=== PATIENT | male | born 1975 | race Caucasian/White ===

== ENCOUNTER 2019-06-26 15:50 | Emergency (ER) | payer SELFPAY | END 2019-06-26 16:27 | disposition home or self-care (01) | LOC: ERS 15:50 | DX: K04.7 Periapical abscess without sinus (principal); F32.9 Major depressive disorder, single episode, unspecified; F43.10 Post-traumatic stress disorder, unspecified; F17.210 Nicotine dependence, cigarettes, uncomplicated | CPT/HCPCS: 99283 ==

== ENCOUNTER 2020-02-09 09:12 | Emergency (ER) | payer SELFPAY ==
[2020-02-09] MEDS ORDERED: Dexamethasone 4 mg/ml Vial ONE (10:48)
== END 2020-02-09 10:55 | disposition home or self-care (01) ==
LOC: ERS 09:12
DX: K02.9 Dental caries, unspecified (principal); F32.9 Major depressive disorder, single episode, unspecified; F17.210 Nicotine dependence, cigarettes, uncomplicated
CPT/HCPCS: 99283; J1100

== ENCOUNTER 2020-09-17 20:15 | Emergency (ER) | payer MEDICARE, MEDICAID | END 2020-09-17 21:50 | disposition home or self-care (01) | LOC: ERS 20:15 | DX: S63.285A Dislocation of proximal interphalangeal joint of left ring finger, initial encounter (principal); F17.210 Nicotine dependence, cigarettes, uncomplicated; X58.XXXA Exposure to other specified factors, initial encounter | CPT/HCPCS: 26770 ==